=== PATIENT | male | born 1985 | race African-American/Black ===

== ENCOUNTER 2017-05-29 09:33 | Emergency (ER) | payer OTHER ==
[2017-05-29 09:52] VITALS: TEMP 97.6
--- NOTE | 2017-05-29 09:59 | ED.PDOC ---
History of Present Illness - General Chief Complaint: Cardiovascular Problem Stated Complaint: anxiety, heart racing Time Seen by Provider: 05/29/17 09:44 Source: patient Exam Limitations: no limitations - History of Present Illness Initial Comments: Patient presents with palpitations. He says they started yesterday. He felt himself getting nervous and thought that he was having an anxiety attack. He had dyspnea briefly but it resolved. He says that he never had chest pain at any point. He still feels some palpitations. Does not smoke nor use recreational drugs. No history of heart disease. No known hyperlipidemia. No first degree family members with heart disease. He is not diabetic. No other complaints. No timmy history of anxiety attacks. Timing/Duration: other - 14 hours Severity: mild Improving Factors: nothing Worsening Factors: nothing Associated Symptoms: denies symptoms Allergies/Adverse Reactions: Allergies NO KNOWN ALLERGY Allergy (Verified 05/29/17 09:52) Review of Systems - Review of Systems Constitutional: States: no symptoms reported EENTM: States: no symptoms reported Respiratory: States: see HPI Cardiology: States: see HPI Gastrointestinal/Abdominal: States: no symptoms reported Genitourinary: States: no symptoms reported Musculoskeletal: States: no symptoms reported Skin: States: no symptoms reported Neurological: States: no symptoms reported Endocrine: States: no symptoms reported Hematologic/Lymphatic: States: no symptoms reported Past Medical History (General) - Patient Medical History Hx Stroke: No Hx Asthma: Yes Hx Cardiac Disorders: No Hx Congestive Heart Failure: No Hx Hypertension: No Hx Gastroesophageal Reflux: Yes - Vaccination History Hx Tetanus, Diphtheria Vaccination: No Hx Influenza Vaccination: No Hx Pneumococcal Vaccination: No - Social History Hx Tobacco Use: No Hx Alcohol Use: No Hx Substance Use: No Hx Substance Use Treatment: No Hx Depression: No - Activities of Daily Living Hospice Agency (if applicable):: None - Female History Patient is a Female of Child Bearing Age (10 -59 yrs old): No Patient : No Family Medical History - Family History Mother Family History: Unknown Physical Exam - Physical Exam General Appearance: Alert Respiratory: chest non-tender, lungs clear, normal breath sounds Cardiovascular/Chest: normal peripheral pulses, regular rate, rhythm Gastrointestinal/Abdominal: normal bowel sounds, non tender, soft Extremity: no pedal edema Skin Exam: normal color Progress - Progress Progress: 05/29/17 11:04 Labs unremarkable. Normal TSH. Patient told to follow up with pcp for further evaluation. Laboratory Tests 05/29/17 05/29/17 10:00 10:00 WBC 4.6 L RBC 5.20 Hgb 15.9 Hct 46.7 MCV 89.8 MCH 30.6 MCHC 34.1 RDW 13.9 Plt Count 167 MPV 9.9 Absolute Neuts (auto) 2.60 Absolute Lymphs (auto) 1.40 Absolute Monos (auto) 0.40 Absolute Eos (auto) 0.10 Absolute Basos (auto) 0.10 Neutrophils % 57.1 Lymphocytes % 31.6 Monocytes % 8.4 Eosinophils % 1.5 Basophils % 1.4 Sodium 137 Potassium 3.6 Chloride 102 Carbon Dioxide 25 Anion Gap 13.6 BUN 16 Creatinine 1.41 H BUN/Creatinine Ratio 11.3 Random Glucose 117 H Serum Osmolality 276.0 Calcium 9.8 Total Bilirubin 0.8 AST 35 ALT 41 Alkaline Phosphatase 64 Serum Total Protein 8.3 H Albumin 4.4 Globulin 3.9 H Albumin/Globulin Ratio 1.1 TSH 1.03 Thyroxine (T4) 9.87 Departure - Departure Clinical Impression: Palpitations Disposition: Discharge to Home or Self Care Condition: Good Departure Forms: ED Discharge - Pt. Copy, Patient Portal Self Enrollment Diet: resume usual diet Activity: increase activity as tolerated Additional Instructions: Get established with a primary doctor to further evaluate your palpitations. Do it this week.
--- NOTE | 2017-05-29 10:23 | RAD ---
EXAM DESCRIPTION: Chest,1 View CLINICAL HISTORY: 32 years Male, palpitations COMPARISON: None. IMPRESSION: The heart is at the upper limits of normal in size, and is in part accentuated due to technique. Central pulmonary vasculature is within normal limits. There is no airspace consolidation, pleural effusion, or pneumothorax. No acute osseous abnormality. Electronically signed by: Yoni Terry MD 05/29/2017 10:21 AM CDT
[2017-05-29 11:18] VITALS: BP 173/79; O2SAT 100
== END 2017-05-29 11:18 | disposition home or self-care (01) ==
LOC: ER 09:33
DX: R00.2 Palpitations (principal); K21.9 Gastro-esophageal reflux disease without esophagitis